=== PATIENT | female | born 1970 | race Caucasian/White ===

== ENCOUNTER 2021-07-09 12:25 | Emergency (ER) | payer OTHER, BC, SELFPAY ==
--- NOTE | ~2021-07-09 | CT_ITS ---
EXAMINATION: CT HEAD WITHOUT CONTRAST CLINICAL INFORMATION: Left-sided paresthesias. COMPARISON: None TECHNIQUE: Contiguous axial imaging was performed from the skull base to vertex without intravenous administration of contrast. This CT examination was performed using dose optimization techniques as appropriate, variously including the following: *Automated exposure control *Adjustment of mA and/or kV according to patient size (this includes techniques or standardized protocols for targeted exams where dose is matched to indication/reason for exam; i.e. extremities or head) *Use of iterative reconstruction technique DLP: 814 mGy-cm FINDINGS: There is no evidence of acute intracranial hemorrhage or territorial infarction. No abnormal mass effect or midline shift is seen. Haney to white matter differentiation is well preserved. No extra-axial fluid collections are identified. The ventricles are normal in size. There is no abnormal attenuation within the brain parenchyma. The osseous structures and soft tissues are normal. There is mild mucosal thickening left sphenoid sinus. Rest of the paranasal sinuses and mastoid air cells are well-aerated. CT/CT head/brain wo con IMPRESSION: No acute intracranial process seen.
[2021-07-09 13:49] VITALS: BP 157/95; PULSE 103; RESP 16; O2SAT 100; BMI 27.9
--- NOTE | 2021-07-09 14:27 | ED_ITS ---
HPI - General Adult General Chief complaint: Weakness Stated complaint: numbness left side face and leg, covid pos Time Seen by Provider: 07/09/21 14:08 Source: patient Mode of arrival: ambulatory Limitations: no limitations History of Present Illness HPI narrative: Patient is a 51 y.o. female with past medical history significant for migraine, and seizures. She was vaccinated for COVID-19, and was tested COVID-19 positive on 07/03/2021, symptom onset of productive cough 1 week ago, almost resolved. Reports that yesterday she developed left lateral knee/ lower leg numbness, that was self resolving. Denies associated pain, tenderness to touch, swelling of the leg, nor precipitating injury. Today after awaking, at 1000 she developed similar numbness to left lateral knee that extended lower onto her left lateral leg which is still present. In addition, she had a period of intermittent facial numbness felt over her left cheek which self resolved. Denies dizziness/ lightheadedness, slurred speech, confusion, neck pain, chest pain, shortness of breath, dyspnea with exertion, calf pain or tenderness, weakness, difficulty with ambulation, or unsteady gait. Denies recent tick exposure, or known lyme disease. Onset (ago): hour(s) (4.5) Location: face and lower extremity (left) Relieving factors: none Exacerbating factors: none Treatments prior to arrival: none Related Data Previous Rx's Medication Instructions Recorded aspirin 81 mg tablet,delayed 81 mg PO DAILY #10 tab 07/09/21 release (Aspirin Low Dose) Allergies Allergy/AdvReac Type Severity Reaction Status Date / Time Penicillins [PENICILLINS] Allergy Unknown HIVES Unverified 03/23/20 16:03 Review of Systems Review of Systems: Constitutional: No weight loss, fever, chills, weakness or fatigue. HEENT: No visual loss, blurred vision, double vision or yellow sclera. No hearing loss, sneezing, congestion, runny nose or sore throat. Skin: No rash or itching. Cardiovascular: No chest pain, chest pressure or chest discomfort. No palpitations or pedal edema. Respiratory: No shortness of breath, cough or sputum production. Gastrointestinal: No anorexia, nausea, vomiting or diarrhea. No abdominal pain or blood in stool. Genitourinary: No burning micturition. No urinary frequency or incontinence. Neurologic: + paresthesias of left side. No headache, dizziness, syncope, unil ateral weakness, ataxia. No change in bowel or bladder control. Musculoskeletal: No muscle pain, back pain, joint pain or stiffness. Hematologic: No bleeding or bruising. Lymphatics: No enlarged lymph nodes. Psychiatric:No depression or anxiety. Endocrine: No reports of sweating. No cold or heat intolerance. No polyuria or polydipsia. [facility] Past Medical History Attestation statement: The following information was validated with the patient. Source: old records reviewed Medical History Migraines Seizure Surgical History Previous section Social History Social History Advance Directives: No Advance Directives Information Provided: No Patient : No Physical Exam Vital Signs: Vital Signs: Last Vital Signs Temp 96 F L 07/09/21 15:50 Pulse 87 07/09/21 15:50 Resp 20 07/09/21 15:50 BP 168/87 H 07/09/21 15:50 Pulse Ox 100 07/09/21 15:50 BMI result Body Mass Index 27.9 Appearance: Alert.? Oriented X3.? No acute distress.?? Eyes: Pupils equal, round and reactive to light.?? ENT: Pharynx normal.?? Neck: Normal inspection.? Neck supple.?? CVS: Normal heart rate and rhythm.? Pulses normal.?? Respiratory: No respiratory distress.? Breath sounds normal.?? Abdomen: Soft and nontender.?? Skin: Skin warm and dry.? Normal skin color.? Normal skin turgor.?? Extremities: No lower extremity edema.? No calf ttp? Neuro: Oriented X 3.No focal neurological deficit observed, normal sensory observed, normal coordination observed. Level of consciousness: Appropriate for age. Motor strength: Proximal right upper extremity 5 /5, distal right upper extre mity 5 /5, proximal left upper extremity 5 /5, distal left upper extremity 5 /5, right lower extremity 5 /5, left lower extremity 5 /5.? Speech: Normal, Gait: Normal, [id number] test: Normal, Hpgg-dv-pjtz test: Normal. NIH Stroke Scale Internal: Initial- Upon Arrival Time: 14:30 Level of Consciousness: Alert Level of Consciousness Questions: Answers both questions correctly Level of Consciousness Commands: Performs both tasks correctly Best Gaze: Normal Visual: No visual loss Facial Palsy: Normal Motor Arm (Right): No drift Motor Arm (Left): No drift Motor Leg (Right): No drift Motor Leg (Left): No drift Limb Ataxia: Absent Sensory: Normal Best Language: No aphasia Dysarthia: Normal Extinction and Inattention: No abnormality Score: 0 Course Course Course Narrative: 51 year female with history of left-sided paresthesias. CT head obtained, no acute intracranial process is seen. Mildly elevated platelet count of 420. No neurological deficits observed on exam and no changes in symptoms emergency department. Blood pressure readings noted to be elevated when in the emergency department, she report frequently checking them while at home and they are normal, but since COVID-19 infection they have been elevated. Patient to be discharged home with close follow-up and return instructions. Medical Decision Making MDM Narrative Medical decision making narrative: 51 y.o. female with past medical history significant for migraine and seizure. Denies personal history of hypertension, hyperlipidemia, or family history of stroke. Reports onset of intermittent left- sided paresthesia's yesterday evening, that completely resolved, and started again this AM at 1000. NIH stroke scale 0, no neurological deficit. Low suspicion for stroke, however given her symptoms, CT of head to be obtained to exclude ischemia or hemorrhage. Lab Data Result diagrams: 07/09/21 14:38 07/09/21 14:38 Labs: Lab Results 07/09/21 07/09/21 Range/Units 14:38 14:38 WBC 6.9 (4.8-10.8) X10*3/uL RBC 4.84 (4.20-5.50) X10*6/uL Hgb 14.2 (12.0-16.0) g/dl Hct 43.7 (37.0-47.0) % MCV 90.3 (80.0-98.0) fL MCH 29.3 (27.0-33.0) pg MCHC 32.5 (31.0-35.0) g/dl RDW 13.7 (11.0-16.0) % Plt Count 420 H (160-400) X10*3/uL MPV 7.8 L (9.4-12.3) fL Immature Gran % (Auto) 0.3 (0.0-0.4) % Neut % (Auto) 70.0 (45-73) % Lymph % (Auto) 22.8 (20-40) % [place] % (Auto) 5.5 (2-11) % Eos % (Auto) 1.0 (0-4) % Baso % (Auto) 0.4 (0-2) % Lymph # (Auto) 1.6 (1.2-4.9) X10*3/uL [place] # (Auto) 0.4 (0.1-1.2) X10*3/uL Eos # (Auto) 0.1 (0.0-0.4) X10*3/uL Baso # (Auto) 0.0 (0.0-0.2) X10*3/uL Abs Immat Gran (auto) 0.02 (0.00-0.03) X10*3/uL Absolute Neuts (auto) 4.8 (2.0-8.3) x10*3/uL Absolute Nucleated RBC 0.000 (0.0-0.012) X10*3/uL Nucleated RBC % (auto) 0.0 (0.0-0.2) /100WBC Sodium 139 (135-145) mmol/L Potassium 4.3 (3.3-5.1) mmol/L Chloride 106 (96-108) mmol/L Carbon Dioxide 28 (22-29) mmol/L Anion Gap 9 L (12-20) BUN 14 (9-16) mg/dL Creatinine 0.68 (0.5-1.4) mg/dL Estim Creat Clear Calc 95.3 Estimated GFR > 60 Random Glucose 104 (60-115) mg/dL Calcium 9.5 (8.4-10.2) mg/dL Magnesium 2.2 (1.6-2.6) mg/dL Discharge Plan Discharge Clinical Impression: Paresthesias Patient Disposition: Home, Self-Care Instructions: Paresthesia (ED) Additional Instructions: You have been evaluated in the emergency department for the continuous numbness of your left leg, and a left facial numbness that had resolved. As we discussed the CT obtained of your head does not reveal concern for any stroke. Please contact your primary care physician to schedule follow-up in 1-2 days, and to discuss management of elevated blood pressure reading. Please return to the emergency department if you develop worsening or new concerning symptoms, including but not limited to, chest pain, confusion, diffic ulty with speech, worsening numbness or tingling on one side of your body, difficulty walking, dizziness, passing out, shortness of breath, or nausea with persistent vomiting. Prescriptions: New aspirin [Aspirin Low Dose] 81 mg tablet,delayed release (DR/EC) 81 mg PO DAILY Qty: 10 RF: 0 Interventions: ED Discharge Assessment Last Done: 07/09/21 16:33 Discharge Date/Time: 07/09/21 16:34
--- NOTE | 2021-07-09 14:31 | PC.NURSE ---
Pt received: Pt AOX4 and c/o L medina numbness and L facial tingling. Pt is known covid positive upon arrival. Pt heart sounds normal, lungs clear. Pt abd soft, non-tender.
[2021-07-09 14:53] LABS: MANUAL DIFF FLAG NO
[2021-07-09 14:55] LABS: Basophils Percent Auto 0.4 % (0-2); Eosinophils Absolute Auto 0.1 X10*3/uL (0.0-0.4); Hematocrit 43.7 % (37.0-47.0); Hemoglobin 14.2 g/dl (12.0-16.0); Imm Gran Abs Auto 0.02 X10*3/uL (0.00-0.03); Imm Gran Pct Auto 0.3 % (0.0-0.4); Lymphocytes Absolute Auto 1.6 X10*3/uL (1.2-4.9); Lymphocytes Percent Auto 22.8 % (20-40); Mean Corpuscular HGB Conc 32.5 g/dl (31.0-35.0); Mean Corpuscular Hemoglobin 29.3 pg (27.0-33.0); Mean Corpuscular Volume 90.3 fL (80.0-98.0); Mean Platelet Volume 7.8 fL (9.4-12.3); Monocytes Absolute Auto 0.4 X10*3/uL (0.1-1.2); Monocytes Percent Auto 5.5 % (2-11); Neutrophils Absolute Auto 4.8 x10*3/uL (2.0-8.3); Platelet Count 420 X10*3/uL (160-400); Red Blood Count 4.84 X10*6/uL (4.20-5.50); Red Cell Distribution Width 13.7 % (11.0-16.0); White Blood Count 6.9 X10*3/uL (4.8-10.8)
[2021-07-09 15:16] LABS: Anion Gap 9 (12-20); Blood Urea Nitrogen 14 mg/dL (9-16); Calcium 9.5 mg/dL (8.4-10.2); Carbon Dioxide 28 mmol/L (22-29); Chloride 106 mmol/L (96-108); Creatinine Clr Calc Pharmacy 95.3; Estimated Glomerular Filt Rate > 60; Glucose Random 104 mg/dL (60-115); Magnesium 2.2 mg/dL (1.6-2.6); Potassium 4.3 mmol/L (3.3-5.1); Sodium 139 mmol/L (135-145)
[2021-07-09 15:50] VITALS: BP 168/87; PULSE 87; RESP 20; TEMP 35.5; O2SAT 100
--- NOTE | 2021-07-09 16:31 | PC.NURSE ---
PLAN IS FOR DC HOME. PT AGREEEABLE TO PLAN. STATES NO QUESTIONS. NEUROS INTACT. BLUE FREELY. ALERT AND ORIENTED X 3. IV REMOVED. AMBULATORY OUT OF ER, GAIT STEADY
== END 2021-07-09 16:34 | disposition home or self-care (01) ==
PROVIDERS: Nurse Practitioner Family; Emergency Provider Emergency Medicine; PCP Internal Medicine
DX: R20.2 Paresthesia of skin (principal); R53.1 Weakness; Z86.16 Personal history of COVID-19
CPT/HCPCS: 36415; 70450; 80048; 83735; 85025; 99283; 99284